=== PATIENT | female | born 1970 | race Caucasian/White ===

== ENCOUNTER 2018-09-07 21:22 | Inpatient (IN) | payer OTHER ==
[~2018-09-07] VITALS: Ht 152.4 cm; Wt 89.2 kg
--- NOTE | 2018-09-07 23:53 | HP ---
Date/Time of Note Date/Time of Note DATE: 09/07/18 TIME: 23:53 Assessment/Plan VTE Prophylaxis Pharmacological prophylaxis: heparin Assessment/Plan Assessment/Plan 1. Epigastric abdominal pain and bilateral flank pain -CT abdomen/pelvis from outside facility without acute findings -Check UA and urine culture -Trial of PPI 2. Left breast carcinoma: Status post lumpectomy as well as chemo, currently in remission -Continue Neratinib 3. Hypothyroidism: Check TSH 4. Hypertension: Continue home meds. Adjust as needed 5. CKD: Per patient she was told about kidney disease about a year ago -Creatinine 1.21 at the outside facility. Monitor closely 6. Obesity, with BMI of 38: Weight reduction advised HPI/ROS Admit Date/Time Admit Date/Time Sep 07, 2018 at 23:14 Hx of Present Illness This is a 47-year-old female with a history of left breast carcinoma status post lumpectomy and chemoradiation currently in remission, history of hypertension, hypothyroidism, dyslipidemia, CKD who initially presented on outside hospital complaining of abdominal pain and bilateral flank pain. Symptoms been going on for the past 2 days. She also reported nausea and vomiting. She said when she is having a bowel movement, her flank pain worsens. CT abdomen/pelvis at the outside facility shows mild hepatomegaly and mild fatty liver otherwise no acute findings. Her initial WBC was 10 and creatinine 1.21. Patient was transferred to [facility] for insurance reasons. PMH/Family/Social Past Medical History Coded Allergies: No Known Allergies (Verified Allergy, Unknown, 09/07/18) Family History Significant Family History: no pertinent family hx Social History Alcohol Use: none Drug Use: none Exam/Review of Systems Exam Exam Constitutional: alert, oriented, well developed, other Head: normocephalic, atraumatic Respiratory: normal air movement Cardiovascular: regular rate and rhythm Gastrointestinal: soft Extremities: normal pulses PMH: see HPI PSH: see HPI . WOODY REYES MD Sep 07, 2018 23:53
[2018-09-07 23:59] VITALS: Ht 152.4 cm; Wt 89.2 kg
[2018-09-08] VITALS: BP 128/64; PULSE 81; RESP 18
[2018-09-08] MEDS ORDERED: HYDROCODONE/APAP (5/325) TAB PO PRN ×2
[2018-09-08] MEDS ORDERED: NACL 0.9% 3 ML SYG IV SCH
[2018-09-08] MEDS ORDERED: ACETAMINOPHEN 325 MG TAB PO PRN
[2018-09-08] MEDS ORDERED: ONDANSETRON 4 MG INJ IV PRN
[2018-09-08] MEDS ORDERED: NERA40TA PO (00:24)
[2018-09-08] MEDS: KETOROLAC 30 MG INJ IV PRN ×3 (00:30→22:34)
[2018-09-08] MEDS: SOD CHLORIDE 0.9% 1,000 ML IV SCH ×2 (00:31→09:35)
[2018-09-08 01:57] VITALS: BP 100/57; PULSE 78; RESP 18
[2018-09-08 08:31] VITALS: BP 113/62; PULSE 75; RESP 18
[2018-09-08] MEDS: PANTOPRAZOLE (EC) 40 MG TAB PO SCH (09:34)
--- NOTE | 2018-09-08 13:14 | PN ---
Date/Time of Note Date/Time of Note DATE: 09/08/18 TIME: 13:00 Assessment/Plan VTE Prophylaxis Risk score (from Nsg)>0 risk: 6 SCD applied (from Nsg): Yes Pharmacological prophylaxis: LMWH Lines/Catheters IV Catheter Type (from Nrsg): Saline Lock Urinary Cath still in place: No Assessment/Plan Assessment/Plan 1. Abdominal pain and bilateral flank pain, CT abdomen/pelvis from outside facility without acute findings, check lipase, awaiting for UA, on protonix 2. Left breast carcinoma: Status post lumpectomy as well as chemo, currently in remission, Continue Neratinib 3. Hypothyroidism, synthroid was stopped by PCP one month ago, she was taking 100 mcg/day, I will resume synthroid 4. Hypertension, controlled without medication 5. CKD: Per patient she was told about kidney disease about a year ago, Creatinine 1.21 at the outside facility. Monitor closely 6. Obesity, with BMI of 38: Weight reduction advised 6. DVT prophylaxis: lovenox Result Diagram: 09/08/18 0535 09/08/18 0535 Results 24hrs Laboratory Tests Test 09/08/18 05:35 White Blood Count 7.6 Red Blood Count 3.92 L Hemoglobin 12.5 Hematocrit 37.1 Mean Corpuscular Volume 94.6 Mean Corpuscular Hemoglobin 31.9 Mean Corpuscular Hemoglobin Concent 33.7 Red Cell Distribution Width 13.5 Platelet Count 181 Mean Platelet Volume 10.8 H Immature Granulocytes % 0.800 H Neutrophils % 81.4 H Lymphocytes % 11.8 L Monocytes % 5.8 Eosinophils % 0.1 Basophils % 0.1 Nucleated Red Blood Cells % 0.0 Immature Granulocytes # 0.060 H Neutrophils # 6.2 Lymphocytes # 0.9 Monocytes # 0.4 Eosinophils # 0.0 Basophils # 0.0 Nucleated Red Blood Cells # 0.0 Sodium Level 142 Potassium Level 3.5 Chloride Level 102 Carbon Dioxide Level 25 Anion Gap 15 H Blood Urea Nitrogen 15 Creatinine 1.10 H Est Glomerular Filtrat Rate mL/min 53 L Glucose Level 177 Calcium Level 8.3 L Phosphorus Level 3.6 Magnesium Level 1.9 Total Bilirubin 1.0 Direct Bilirubin 0.00 Indirect Bilirubin 1.0 Aspartate Amino Transf (AST/SGOT) 75 H Alanine Aminotransferase (ALT/SGPT) 92 H Alkaline Phosphatase 89 Total Protein 8.0 Albumin 4.1 Globulin 3.90 H Albumin/Globulin Ratio 1.05 Thyroid Stimulating Hormone (TSH) 77.400 H Subjective 24 Hr Interval Summary Free Text/Dictation diffuse abdominal pain, nausea. vomited this morning. No diarrhea. no fever or chills Exam/Review of Systems Vital Signs Vitals Vital Signs Date Temp Pulse Resp B/P (MAP) Pulse Ox O2 O2 Flow FiO2 Time Delivery Rate 09/08/18 97.5 75 18 113/62 98 Room Air 08:31 (79) Intake and Output 09/07/18 09/07/18 09/08/18 1515:00 23:00 07:00 IntakeIntake Total 600 ml BalanceBalance 600 ml Exam Constitutional: alert, oriented, well developed, obese Psych: no complaints, nl mood/affect Head: normocephalic, atraumatic Eyes: nl conjunctiva, EOMI, nl lids, nl sclera, PERRL ENMT: nl external ears & nose, nl lips & teeth, nl nasal mucosa & septum, mucosa pink and moist Neck: supple, non-tender Respiratory: clear to auscultation, normal air movement; No congested cough, No crackles/rales, No diminished breath sounds, No intercostal retraction, No labored breathing, No respirations, No tactile fremitus, No wheezing, No other Cardiovascular: regular rate and rhythm, nl pulses; No bruits, No diastolic murmur, No edema, No gallop, No irregular rhythm, No jugular venous distention (JVD), No murmurs/extra sounds, No rub, No systolic murmur, No S3, No S4, No other Gastrointestinal: soft, nl liver, spleen, other (diffuse tenderness) Musculoskeletal: nl extremities to inspection Extremities: normal pulses; No calf tenderness, No cyanosis, No clubbing, No edema, No pitting pedal edema, No palpable cord, No tenderness, No other Neurological: FLUID DESIGNER II-XII intact, nl mental status, nl speech, nl strength Skin: nl turgor Medications Medications Current Medications Sodium Chloride 1,000 ml @ 100 mls/hr Q10H IV Last administered on 09/08/18at 00:31; Admin Dose 100 MLS/HR; Start 09/07/18 at 23:50; Stop 09/08/18 at 23:00 IV Flush (NS 3 ml) 3 ml PER PROTOCOL IV ; Start 09/08/18 at 00:00 Ondansetron HCl (Zofran Inj) 4 mg Q6H PRN IV NAUSEA AND/OR VOMITING Last administered on 09/08/18at 04:05; Admin Dose 4 MG; Start 09/08/18 at 00:00 Acetaminophen (Tylenol Tab) 650 mg Q6H PRN PO PAIN LEVEL 1-3 OR FEVER; Start 09/08/18 at 00:00 Acetaminophen/ Hydrocodone Bitart ([place] (5/325)) 1 tab Q6H PRN PO MODERATE PAIN LEVEL 4-6; Start 09/08/18 at 00:00 Acetaminophen/ Hydrocodone Bitart ([place] (5/325)) 2 tab Q6H PRN PO SEVERE PAIN LEVEL 7-10; Start 09/08/18 at 00:00 Ketorolac Tromethamine (Toradol) 30 mg Q6H PRN IV PAIN LEVEL 1-3 Last administered on 09/08/18at 00:30; Admin Dose 30 MG; Start 09/08/18 at 00:30; Stop 09/11/18 at 00:29 Pantoprazole (Protonix Tab) 40 mg DAILY@06 PO Last administered on 09/08/18at 09:34; Admin Dose 40 MG; Start 09/08/18 at 09:05 Non-Formulary Medication 2 dose DAILY@1500 PO ; Start 09/08/18 at 15:00 ZELDA GORDILLO MD Sep 08, 2018 13:10
[2018-09-08] MEDS: D5W-0.45 NACL + KCL 20 MEQ 1,000 ML IV SCH ×2 (13:41→23:48)
[2018-09-08 14:22] VITALS: BP 107/66; PULSE 71; RESP 18
[2018-09-08] MEDS ORDERED: [UNRECOGNIZED DRUG - OTHER] PO SCH (15:00)
[2018-09-08 20:00] VITALS: BP 131/75; PULSE 69; RESP 18
[2018-09-09 01:58] VITALS: BP 108/57; PULSE 77; RESP 18
[2018-09-09] MEDS: PANTOPRAZOLE (EC) 40 MG TAB PO SCH (05:43)
[2018-09-09] MEDS: KETOROLAC 30 MG INJ IV PRN ×2 (05:46→12:11)
[2018-09-09] MEDS ORDERED: LEVOTHYROXINE 100 MCG TAB PO SCH (06:00)
[2018-09-09 07:30] VITALS: BP 111/65; PULSE 75; RESP 16
[2018-09-09] MEDS: D5W-0.45 NACL + KCL 20 MEQ 1,000 ML IV SCH (09:31)
[2018-09-09] MEDS ORDERED: LEVO100T8 PO (13:06)
[2018-09-09] MEDS ORDERED: PANT40TA4 PO (13:06)
--- NOTE | 2018-09-09 13:13 | DS ---
Date/Time of Note Date/Time of Note DATE: 09/09/18 TIME: 13:08 Discharge Summary Admission/Discharge Info Admit Date/Time Sep 07, 2018 at 23:14 Discharge Date/Time Discharge Diagnosis 1. Abdominal pain and bilateral flank pain, CT abdomen/pelvis from outside f acility without acute findings, improved with protonix, follow up with PCP 2. Left breast carcinoma: Status post lumpectomy as well as chemo, currently in remission, Continue Neratinib 3. Hypothyroidism, synthroid was stopped by PCP one month ago, resume synthroid, follow up with PCP 4. Hypertension, controlled without medication 5. CKD: Per patient she was told about kidney disease about a year ago, Creatinine 1.11, stable, follow up with PCP 6. Obesity, with BMI of 38: Weight reduction advised Patient Condition: Stable Hospital Course This is a 47-year-old female with a history of left breast carcinoma status post lumpectomy and chemoradiation currently in remission, history of hypertension, hypothyroidism, dyslipidemia, CKD who initially presented on outside hospital complaining of abdominal pain and bilateral flank pain. Symptoms been going on for the past 2 days. She also reported nausea and vomiting. She said when she is having a bowel movement, her flank pain worsens. CT abdomen/pelvis at the outside facility shows mild hepatomegaly and mild fatty liver otherwise no acute findings. Her initial WBC was 10 and creatinine 1.21. Patient was transferred to [facility] for insurance reasons.. Physical exam with upper abdominal tenderness. Patient is started on protonix, abdominal relieved today. No nausea or vomiting. I will discharge her with protonix and have her follow up with PCP, may need EGD if pain recurs. Patient has hypothyroidism, synthroid was discontinued by PCP. TSH is 77. I resume her on synthroid 100 mcg po daily. She will follow up with PCP to adjust dosage. Home Meds Active Scripts Levothyroxine Sodium* (Levothyroxine Sodium*) 100 Mcg Tablet, 100 MCG PO DAILY@06 for 30 Days, TAB Prov:ZELDA GORDILLO MD 09/09/18 Pantoprazole* (Pantoprazole*) 40 Mg Tablet.dr, 40 MG PO DAILY@06 for 30 Days Prov:ZELDA GORDILLO MD 09/09/18 Reported Medications Neratinib Maleate (Nerlynx) 40 Mg Tablet, 40 MG PO BID WITH MEALS, TAB 09/08/18 Follow-up Plan PCP in one week Primary Care Provider Not On Staff Doctor Pending Labs Laboratory Tests Test 09/09/18 06:09 White Blood Count 7.0 10^3/ul (4.8-10.8) Red Blood Count 3.89 10^6/ul (4.20-5.40) Hemoglobin 12.4 g/dl (12.0-16.0) Hematocrit 37.3 % (37.0-47.0) Mean Corpuscular Volume 95.9 fl (82.0-101.0) Mean Corpuscular Hemoglobin 31.9 pg (29.0-33.0) Mean Corpuscular Hemoglobin Concent 33.2 g/dl (32.0-37.0) Red Cell Distribution Width 13.7 % (11.5-14.5) Platelet Count 184 10^3/UL (140-415) Mean Platelet Volume 10.6 fl (7.4-10.4) Immature Granulocytes % 0.400 % (0.001-0.429) Neutrophils % 73.8 % (39.0-77.0) Lymphocytes % 18.4 % (15.0-51.0) Monocytes % 6.7 % (0.0-11.0) Eosinophils % 0.6 % (0.0-7.0) Basophils % 0.1 % (0.0-2.0) Nucleated Red Blood Cells % 0.0 /100WBC (0.0-0.0) Immature Granulocytes # 0.030 10^3/ul (0.0-0.031) Neutrophils # 5.2 10^3/ul (1.6-7.5) Lymphocytes # 1.3 10^3/ul (0.8-2.9) Monocytes # 0.5 10^3/ul (0.3-0.9) Eosinophils # 0.0 10^3/ul (0.0-0.5) Basophils # 0.0 10^3/ul (0.0-0.1) Nucleated Red Blood Cells # 0.0 10^3/ul (0.0-0.0) Sodium Level 137 mmol/L (135-144) Potassium Level 3.9 mmol/L (3.5-5.1) Chloride Level 101 mmol/L (97-110) Carbon Dioxide Level 26 mmol/L (21-31) Anion Gap 10 (5-13) Blood Urea Nitrogen 11 mg/dl (7-20) Creatinine 1.11 mg/dl (0.44-1.00) Est Glomerular Filtrat Rate mL/min 52 mL/min (>60) Glucose Level 148 mg/dl (70-220) Hemoglobin A1c 8.0 % (0-5.9) Calcium Level 8.1 mg/dl (8.4-10.2) Total Bilirubin 0.7 mg/dl (0.2-1.3) Direct Bilirubin 0.00 mg/dl (0.00-0.20) Indirect Bilirubin 0.7 mg/dl (0-1.1) Aspartate Amino Transf (AST/SGOT) 69 IU/L (15-46) Alanine Aminotransferase (ALT/SGPT) 86 IU/L (13-69) Alkaline Phosphatase 84 IU/L (42-121) Total Protein 7.8 g/dl (6.1-8.1) Albumin 3.9 g/dl (3.3-4.9) Globulin 3.90 g/dl (1.3-3.2) Albumin/Globulin Ratio 1.00 ZELDA GORDILLO MD Sep 09, 2018 13:13
[2018-09-09 14:09] VITALS: BP 117/68; PULSE 65; RESP 16
== END 2018-09-09 15:38 | disposition home or self-care (01) | DRG 392 ==
LOC: PP2 23:14
PROVIDERS: ADMIT Internal Medicine; ATTEND Internal Medicine
DX: R10.13 Epigastric pain (principal); E03.9 Hypothyroidism, unspecified; I12.9 Hypertensive chronic kidney disease with stage 1 through stage 4 chronic kidney disease, or unspecified chronic kidney disease; N18.9 Chronic kidney disease, unspecified; E78.5 Hyperlipidemia, unspecified; E66.9 Obesity, unspecified; R10.9 Unspecified abdominal pain; R11.2 Nausea with vomiting, unspecified; Z68.38 Body mass index [BMI] 38.0-38.9, adult; Z85.3 Personal history of malignant neoplasm of breast; Z92.21 Personal history of antineoplastic chemotherapy
CPT/HCPCS: 80053; 83036; 83690; 83735; 84100; 84443; 85025; 87081; J1885; J2405; J3480; J7030